=== PATIENT | female | born 1955 | race Caucasian/White ===

== ENCOUNTER → 2023-01-04 13:21 | Outpatient (CLI) | payer OTHER, SELFPAY ==
--- NOTE | 2023-01-04 13:23 | DI.RAD.S_ITS ---
PROCEDURE: XR CHEST 2V INDICATIONS: Cough TECHNIQUE: 2 views of the chest were acquired. COMPARISON: None. FINDINGS: Surgical changes and devices: None. Lungs and pleura: Lungs are clear. No pleural effusions or pneumothorax. Mediastinum: Mediastinal contours are normal. Heart size is normal. Bones and chest wall: No suspicious bony abnormalities. Soft tissues appear unremarkable. IMPRESSION: Normal for age, source of current cough symptoms is not seen. Dictated by: Jose Crockett M.D. on 01/04/2023 at 14:16 Approved by: Jose Crockett M.D. on 01/04/2023 at 14:16
== END ==
PROVIDERS: Referring Provider Registered Nurse; Visit Provider Registered Nurse
DX: R05.9 Cough, unspecified (principal)
CPT/HCPCS: 71046

== ENCOUNTER → 2025-07-30 17:53 | Outpatient (CLI) | payer MEDICARE, SELFPAY ==
--- NOTE | 2025-07-30 17:58 | DI.RAD.S_ITS ---
PROCEDURE: XR KNEE LT 3V INDICATIONS: Left knee pain, popped when walking downstairs TECHNIQUE: 3 views of the knee were acquired. COMPARISON: None. FINDINGS: Bones: No fractures or dislocations. No suspicious bony lesions. Mild osteoarthritic changes with medial compartment joint space narrowing and osteophytosis. Soft tissues: Small joint effusion. No suspicious soft tissue calcifications. IMPRESSION: No acute osseous abnormalities. Mild osteoarthritic changes. Small knee joint effusion. Dictated by: Ovi Vitale M.D. on 07/30/2025 at 20:39 Approved by: Ovi Vitale M.D. on 07/30/2025 at 20:40
== END ==
LOC: RAD 17:57
PROVIDERS: PCP Nurse Practitioner; Referring Provider Nurse Practitioner Family; Visit Provider Nurse Practitioner Family
DX: S86.912A Strain of unspecified muscle(s) and tendon(s) at lower leg level, left leg, initial encounter (principal); M25.462 Effusion, left knee; X58.XXXA Exposure to other specified factors, initial encounter
CPT/HCPCS: 73562

== ENCOUNTER 2025-08-25 09:31 | Day surgery (SDC) | payer MEDICARE, SELFPAY ==
[2025-08-20 09:38] VITALS: BMI 29.0
[2025-08-25] VITALS (21 sets, daily range): BP systolic 131–177; BP diastolic 72–95; PULSE 69–102; RESP 12–17; TEMP 35.5–37; O2SAT 90–99; BMI 31.6
[2025-08-25] MEDS: LACTATED RINGERS 1,000 ML 42 ML IV (10:31)
--- NOTE | 2025-08-25 11:26 | PM.PREOP ---
Pre-operative Note Interval Note History & Physical reviewed/Exam performed by Physician: Yes Changes to H&P: No
[2025-08-25] MEDS: CLINDAMYCIN 600 MG/50 ML PIGGYBACK 50 MG IV (12:05)
--- NOTE | 2025-08-25 12:12 | SUR.OPER ---
Supine on padded OR bed, head on pillow, arms secured on padded arm boards at <90 degrees abduction, legs uncrossed, safety belt at thigh, tape over blanket over lower legs. Arthroscopy knee positioner in place on operative side. All pressure points padded and protected. Surgeon in room to assist with positioning
[2025-08-25] MEDS: SODIUM CHLORIDE IRRIG SOLUTION 3,000 ML, EPINEPHrine 3 MG IRR (13:01)
--- NOTE | 2025-08-25 14:44 | PM.OP.1 ---
Operative Date/Time/Diagnoses Date of procedure: 08/25/25 Time of procedure: 12:00 Pre-op diagnosis: medial meniscus root tear Post-op diagnosis: same Procedure & Clinicians Procedure: meniscal root repair Same procedure(s) as scheduled: Yes Surgeon: Lesvia Garcia Assisted?: Yes Drafter Civil (Cad): Latha Howell Anesthesia Type: General Operative Notes Findings: see below Closure Type: primary Specimen(s): none sent Applied: none Estimated Blood Loss (mL): 10 Blood products transfused: none Tourniquet time (min): 118 Procedure in detail: Preoperative diagnosis: Left Medial meniscus root tear Procedure performed: 1) left knee medial meniscus root repair 2) Patella chondroplasty Postoperative diagnosis: same as above Primary Surgeon: Lesvia Garcia, DO Drafter Civil (Cad):? Latha Howell PA-C Anesthesia: General LMA EBL: 10 ml Tourniquet: ?118 minutes @ 250 mmHg Implants: Arthrex 4.75 mm Swivelock Indication For Surgery: ?See Pre-op H&P Examination Under Anesthesia: ROM equal to the contralateral side. Grade I Yvon Stable to varus and valgus stressing at 0 & 30 degrees. No mechanical sensations Diagnostic Arthroscopy: Loose bodies: None Synovium: okay Patella cartilage: grade II fraying? Trochlear cartilage: intact? Medial femoral condyle cartilage: intact Medial tibial plateau cartilage: : intact? Medial meniscus:? posterior horn tear ? radial tear at root ACL: intact PCL: intact Lateral femoral condyle cartilage: intact Lateral tibial plateau cartilage: intact Lateral meniscus: intact Procedure in Detail: The patient was met in the pre-operative hold area. Consent was verified and operative extremity was signed. The patient was brought back to the operating room. The patient was placed supine position on the operating table. A general anesthetic was administered. A well-padded tourniquet was placed on the thigh. An exam under anesthesia was performed with the above findings.? The lower extremity was then prepped and draped in the usual sterile fashion. A timeout was performed per protocol. All members of the operating team were in agreement, and we proceeded. The Esmarch was used to exsanguinate the limb and the tourniquet was inflated. An 11 blade scalpel was used to make an anterolateral arthroscopic portal. The arthroscope was introduced into the knee and the anteromedial portal was created under direct visualization using needle localization. A diagnostic arthroscopy was performed with the above-stated findings.? The medial meniscus tear was repaired with a fiberloop and a meniscal repair guide was utilized to place a flip low raw sugar cutter the appropriate position.? I back drilled 5 mm with the flip cutter and then inserted a looped wire through the guide to pull the sutures back through.? They were secured with a Swivelock anchor.? The resulting repair was stable. The wounds were irrigated.? The incisions were closed with Nylon sutures. ?A sterile dressing was applied. The patient was awakened and transferred to the recovery room in stable condition. ?30 cc of 0.5% Marcaine was infiltrated at the end of the case. An mechanic's assistant was utilized for positioning, and closing. Postoperative Plan: Same day discharge Touch down weightbearing with leg locked in extension. Remove dressing in [address]aids over incision sites. Physical therapy to start after surgery. Follow up at 2 weeks for suture removal. Complications: none Post-operative Condition: stable Disposition: PACU
[2025-08-25] MEDS: ONDANSETRON 4 MG/2 ML INJ IV (14:51)
[2025-08-25] MEDS: ACETAMINOPHEN IV 1,000 MG/100 ML VIAL 400 MG IV (14:57)
[2025-08-25] MEDS: METOCLOPRAMIDE 10 MG/2 ML INJ IV (15:11)
--- NOTE | 2025-08-25 16:49 | SUR.PHASEII ---
1615 coached pt through deep breathing/coughing/IS use, spo2 91% RA, decreased to 89% when asleep, denies soa, placed on 2lnc and continuous spo2, lungs clear/equal bilat, resp 8-12 per min
[2025-08-25] MEDS: ATORVASTATIN 20 MG TABLET 40 MG PO (21:10)
[2025-08-26 00:09] VITALS: BP 163/93; PULSE 84; RESP 18; TEMP 35.8; O2SAT 99
[2025-08-26] MEDS: IBUPROFEN 600 MG TABLET PO ×2 (00:39→06:45)
[2025-08-26] MEDS: ACETAMINOPHEN 325 MG TABLET 650 MG PO ×2 (00:39→06:45)
[2025-08-26] MEDS: ONDANSETRON 4 MG ODT PO (01:54)
[2025-08-26 05:40] VITALS: O2SAT 98
[2025-08-26] MEDS: LEVOTHYROXINE 25 MCG TABLET PO (06:45)
[2025-08-26 07:55] VITALS: BP 134/77; PULSE 68; TEMP 36.2; O2SAT 95
--- NOTE | 2025-08-26 10:41 | PC.NURSE ---
Addendum entered by Alo Farr RN 08/26/25 11:07: WHEELED OUT AT 1104* Addendum entered by Alo Farr RN 08/26/25 11:06: 1055 DISCHARGE INTSRUCTIONS DISCUSSED WITH PATIENT. SIG PAGE SIGNED AND PLACED IN CHART. IV D/C'D. PT STATES SHE HAS NO PAIN AT THIS TIME. CHANO WRAP/ KNEE IMMOBILIZER IN PLACE. WHEELED OUT AT 1057. Original Note: [address] BOBO TO INQUIRE ABOUT PT DISCHARGE. STATES HE MEANT TO PLACE DISCHARGE ORDERS LAST NIGHT. DISCHARGE ORDERED WHILE ON PHONE WITH .
--- NOTE | 2025-08-26 11:21 | CM.DANOTE ---
B DCP Assessment note pt is a 70yo F POD1 left knee after meniscus tear with Dr. Garcia. [employer] reviewed EMR. per chart review lives indep with spouse in [place]. no PT/OT orders in. [employer] contacted ortho provider, no need for pt to work with PT/OT prior to dc, pt should have dc'd yesterday. per RN no obvious DCP needs. [employer] attempted to meet with pt, already gone. P: dc home with OP f/u and spouse support. no identified barriers to safe dc home. RUTH Anderson Discharge Planning/Care Management CM Discharge Assessment Start: 08/25/25 18:54 Freq: Status: Discharge Protocol: Document 08/26/25 11:20 SL (Rec: 08/26/25 11:21 SL [id number]) Discharge Planning Assessment Assigned Discharge RUTH Valdez Adult Protective Caseworker [facility]/Assigned Ronnie, spouse Designee Name Contact Information [phone] Advance Directives? No History Provided By Patient,Medical Record Prior Living House Arrangements Household Members spouse Type of Drives own vehicle transporation used prior to admit Independent with ADL Yes 's Is patient alert and Yes oriented? Discharge Plan Home Referrals Initiated None needed Review Status In Process Please Provide Date 08/26/25 Initial DC Assessment Was Performed Next Review Type Continued Stay Review Pre-Anesthesia Assessment Start: 08/20/25 09:38 Freq: Status: Complete Protocol: Document 08/20/25 09:38 LB (Rec: 08/20/25 09:42 LB [id number]) Pre-Anesthesia Assessment Information obtained Chart review via Height 167.64 cm Weight 81.647 kg Body Mass Index (BMI 29.0 ) If yes, specialist Emergency,Orthopedist seen Patient hospitalized Yes or treated in the ER in the last year? If yes, treated for 08/05/25 - ED visit for knee injury. Does patient have None history of Has patient ever had No a blood clot? Is patient on No anticoagulant therapy? Does patient have a No message broker developer? Was cardiac testing No performed? Does patient have No history of a pacemaker/ICD? Cardiac Clearance Not Applicable Received Does patient have None history of Does patient use No oxygen at home? Does patient have No history of Sleep Apnea? Does patient have None history of Does patient have a No neurostimulator or pain stimulator? Does patient have No history of GERD? Does patient have No history of kidney/ liver problems/ disease? Does patient have Pre-diabetes. Diabetes? GLP-1? No Is patient ? No Is patient No ? Does patient have No history of cancer? Smoking status Never smoker Anesthesia Review No Requested
--- OUTSIDE RECORDS SUMMARY | 2025-08-27 14:30 | XMS_ITS | Clinical Summary ---
Author Organization [facility] Address [address] [place] [address] Care Team Providers Care Anchor Tacker Name Role Phone Unavailable Primary Care Provider Unavailabl e Source Comments NOTE: The information displayed by Care Everywhere is extracted from the complete medical record and may not identify all current or past patient conditions.[facility] Immunizations Immunization Administration Dates Next Due *CELL BASED SYRINGE* FluCELVAX (6+ mos) QUAD *EGG-FREE SYRINGE* FluBLOK (18+ yrs) RECOMBINANT QUAD 09/25/2021,07/25/2020 *STANDARD DOSE SYRINGE* (Flu LAVAL,FluZONE,FluARIX or AFLURIA) (6+ mos) QUAD 07/22/2019,11/01/2017 Influenza, unspecified formulation 07/05/2016 Moderna SARS-CoV-2 Vaccination (12 + y/o)(RED CA P) 02/02/2021,01/05/2021 Pfizer SARS-CoV-2 Vaccination (12 + y/o) (PURPLE CAP) 09/25/2021 Pfizer SARS-CoV-2 Vaccinatio n (12 + y/o)(Bivalent Formulation)(GU CAP) 07/20/2022 Social History Tobacco Use Types Packs/Day Years Used Date Smoking Tobacco: Never Assessed Comments Unknown Sex and Gender Information Value Date Recorded Sex Assigned at Not on file Legal Sex Female 3:12 PM PDT Gender Identity Not on file Sexual Orientation Not on file Plan of Treatment Health Maintenance Due Date Last Done Comments Hep C Screening (1-time) 1975 Vaccine: [id number]-Rr (1 - Tdap) 1976 Vaccine: Pneumococcal (1 of 1 - PCV) 2007 Vaccine: Shingles (1 of 2) 2007 Breast Cancer Screening: Mammogram 03/12/2020 03/12/2018, 02/09/2016, 01/27/2015, Additional history exists FLU VACCINE (#1) 06/07/2025 09/25/2021, , 07/22/2019, Additional history exists Vaccine: RSV (1 - 1-dose 75+ series) 2032
--- OUTSIDE RECORDS SUMMARY | 2025-08-27 14:30 | XMS_ITS | Clinical Summary ---
[facility] Address [address] [place] [address] Care Team Providers Care Associate Professor Of Automation Name Role Phone Herman Tavares MD Primary Care Provider [phone] Social History Tobacco Use Types Packs/Day Years Used Date Smoking Tobacco: Never Assessed Comments Unknown Sex and Gender Information Value Date Recorded Sex Assigned at Not on file Legal Sex Female 7:57 AM PDT Gender Identity Not on file Sexual Orientation Not on file Last Filed Vital Signs Vital Sign Reading Time Taken Comments Blood Pressure - - Pulse 73 12/15/2018 1:15 AM PDT Temperature - - Respiratory Rate 16 12/14/2018 11:00 PM PDT Oxygen Saturation 98% 12/15/2018 1:15 AM PDT Inhaled Oxygen Concentration - - Weight - - Height 167.6 cm (5' 6) 12/14/2018 10:36 PM PDT Body Mass Index - - Plan of Treatment Not on file Care Teams Associate Professor Of Automation Relationship Specialty Start Date End Date Herman Tavares MD PCP - General 12/14/18
== END 2025-08-26 11:04 | disposition home or self-care (01) ==
LOC: OR 14:32 → AC 18:52
PROVIDERS: PCP Nurse Practitioner; Referring Provider Orthopaedic Surgery; Visit Provider Orthopaedic Surgery
PROC: (CPT 29870; principal; 2025-08-25 11:15)
DX: S83.242A Other tear of medial meniscus, current injury, left knee, initial encounter (principal); E78.5 Hyperlipidemia, unspecified; R73.03 Prediabetes; X50.0XXA Overexertion from strenuous movement or load, initial encounter
CPT/HCPCS: 29882; C1713; J0131; J0165; J1100; J1171; J2250; J2274; J2405; J2704; J2765; J3010; J7120